=== PATIENT | male | born 1960 | race Caucasian/White ===

== ENCOUNTER 2022-10-17 20:23 | Emergency (ER) | payer MEDICARE, SELFPAY ==
[2022-10-17 20:29] VITALS: BP 138/88; PULSE 80; RESP 20; TEMP 36.9; O2SAT 92; BMI 31.2
--- NOTE | 2022-10-17 20:56 | XR_ITS ---
[address] [address] Patient Name: ALCIRA GEORGE MRN: [id number] date: 1960 Sex: M Assigned Patient Location: ER Current Patient Location: ER Accession/Order Number: [id number] Exam Date: 10/17/2022 21:05 Report Date: 10/17/2022 21:23 At the request of: PEGGY CHRIS Procedure: XR chest 1V EXAMINATION: XR chest 1V HISTORY: Cough COMPARISON: Chest x-rays 04/08/2015 TECHNIQUE: Portable chest FINDINGS: The lung parenchyma is free of consolidation or infiltrate. No pneumothorax or pleural effusion. The cardiac, mediastinal and hilar contours are normal. The visualized osseous structures exhibit no gross abnormality. XR/XR chest 1V IMPRESSION: No acute cardiopulmonary abnormality. Electronically authenticated by: YESENIA SHAFFER Date: 10/17/2022 21:23
--- NOTE | 2022-10-17 20:57 | ED_ITS ---
HPI - URI/Sore Throat General Chief Complaint: Upper Respiratory Infection Stated Complaint: URTI Complaints Time Seen by Provider: 10/17/22 20:33 Source: patient Limitations: no limitations History of Present Illness HPI Narrative: patient is a 61-year-old male who presents to the emergency department for a two week history of nonproductive coughing. He denies chest pain, fevers, hemoptysis. He was seen by his PCP last week who placed him on doxycycline. He was not given any additional medications. He denies any history of chronic obstructive pulmonary disease, no other heart or lung problems. He states he has heard himself wheezing. He has not had any peripheral edema. No sick contacts in the home. Related Data Previous Rx's Medication Instructions Recorded owsropneajtiyma-crogyrmtpzahzzu-OM 10 ml PO Q6H PRN cold symptoms 10/17/22 2 mg-30 mg-10 mg/5 mL oral syrup #200 mL (Bromfed DM) prednisone 20 mg tablet 60 mg PO DAILY #12 tabs 10/17/22 Allergies Allergy/AdvReac Type Severity Reaction Status Date / Time No Known Drug Allergies Allergy Verified 10/17/22 20:29 Review of Systems ROS Constitutional Denies: fever or chills Ears, nose, mouth, and throat Denies: throat pain Cardiovascular Denies: chest pain Respiratory Reports: cough and wheezing; Denies: shortness of breath Gastrointestinal Denies: nausea or vomiting Musculoskeletal Denies: back pain or neck pain Integumentary/Breast Denies: rash Allergic/Immunologic Denies: hives Exam Narrative Exam Narrative: Gen.: Awake, alert, in no distress Head: Normocephalic, atraumatic ENT: Moist mucous membranes; bilateral tympanic membranes clear, no pharyngeal erythema. Patient speaks in full sentences, uvula midline. Respiratory: No respiratory distress, inspiratory and expiratory wheezing in the right upper and lower lobes Cardio: Regular rate and rhythm Extremities: Moves extremities equally, no pedal edema Psych: Normal mood and affect Neuro: No focal neuro deficit Skin: Warm, dry, intact Constitutional Vital Signs, click to edit/add: Last Vital Signs Temp 98.4 F 10/17/22 20:29 Pulse 90 10/17/22 21:40 Resp 18 10/17/22 21:40 BP 118/79 10/17/22 21:46 Pulse Ox 93 L 10/17/22 21:40 O2 Del Method Room Air 10/17/22 21:40 Course Vital Signs Vital signs: Vital Signs Temperature 98.4 F 10/17/22 20:29 Pulse Rate 80 10/17/22 20:29 Respiratory Rate 20 10/17/22 20:29 Blood Pressure 138/88 10/17/22 20:29 Pulse Oximetry 92 L 10/17/22 20:29 Oxygen Delivery Method Room Air 10/17/22 20:29 Temperature 98.4 F 10/17/22 20:29 Pulse Rate 90 10/17/22 21:40 Respiratory Rate 18 10/17/22 21:40 Blood Pressure 118/79 10/17/22 21:46 Pulse Oximetry 93 L 10/17/22 21:40 Oxygen Delivery Method Room Air 10/17/22 21:40 MDM - URI/Sore Throat MDM Narrative Medical decision making narrative: chest x-ray obtained with no acute cardiopulmonary abnormalities. Patient with no other significant focal medical complaints, he had no hypoxia or tachycardia in the Emergency Room. He is on doxycycline for antibiotic coverage but is not currently receiving any additional medications for cough. He was given Bromfed- DM, prednisone and albuterol inhaler for home. He was encouraged to finish the doxycycline. return to the emergency department if symptoms change or worsen. Medical Records Attestation: I reviewed the patient's medical records. Imaging Data Chest x-ray: Attestation: I have reviewed the pertinent imaging results. Radiologist's impression: Procedure: XR chest 1V EXAMINATION: XR chest 1V HISTORY: Cough COMPARISON: Chest x-rays 04/08/2015 TECHNIQUE: Portable chest FINDINGS: The lung parenchyma is free of consolidation or infiltrate. No pneumothorax or pleural effusion. The cardiac, mediastinal and hilar contours are normal. The visualized osseous structures exhibit no gross abnormality. IMPRESSION: No acute cardiopulmonary abnormality. Electronically authenticated by: YESENIA SHAFFER Date: 10/17/2022 21:23 Discharge Plan Discharge Chief Complaint: Upper Respiratory Infection Clinical Impression: Bronchitis Patient Disposition: Home, Self-Care Time of Disposition Decision: 21:31 Condition: Good Prescriptions / Home Meds: New prednisone 20 mg tablet 60 mg PO DAILY Qty: 12 0RF Rx Instructions: 3 tabs daily for 2 days, then 2 tabs daily for 2 days, then 1 tab daily for 2 days kszqyqswwvqfeuh-jookrhqts-MJ [Bromfed DM] 2-30-10 mg/5 mL syrup 10 ml PO Q6H PRN (Reason: cold symptoms) Qty: 200 0RF Instructions: How to Use a Metered-Dose Inhaler (ED), Acute Bronchitis (ED) Stand Alone Forms: Portal Instructions Referrals: Physician,Non-Staff, MD [Primary Care Provider] - 1 week Discharge Date/Time: 10/17/22 21:54
[2022-10-17] MEDS: METHYLPREDNISOLONE SOD SUCC PF 125 MG/2 ML VIAL IM (21:09)
[2022-10-17] MEDS: ALBUTEROL SULFATE 200 PUFF/6.7 GM INHALER IH (21:36)
[2022-10-17] MEDS: ALBUTEROL SULFATE 2.5 MG/3 ML VIAL NEB IH (21:36)
[2022-10-17 21:40] VITALS: PULSE 90; RESP 18; O2SAT 93
[2022-10-17 21:46] VITALS: BP 118/79
== END 2022-10-17 21:54 | disposition home or self-care (01) ==
PROVIDERS: Emergency Provider Internal Medicine
DX: J40 Bronchitis, not specified as acute or chronic (principal)
CPT/HCPCS: 71045; 94640; 96372; 99284; J2930